=== PATIENT | female | born 1965 | race Caucasian/White ===

== ENCOUNTER → 2017-09-11 | Outpatient (CLI) | payer OTHER | END | disposition home or self-care (01) | LOC: US 08:07 | DX: D24.1 Benign neoplasm of right breast (principal) | CPT/HCPCS: 19081; 19083; 76942; 77065; 88305; C1713 ==

== ENCOUNTER 2018-04-09 06:59 | Emergency (ER) | payer SELFPAY ==
[~2018-04-09] VITALS: Ht 162.6 cm; Wt 84.8 kg
[2018-04-09] MEDS ORDERED: ONDANSETRON PF 4 MG/2 ML VIAL. IV ONE (08:15)
[2018-04-09 08:18] LABS: BASO # 0.1 x10^3/uL (0.0-0.2); BASO % 1 % (0-3); EOS # 0.4 x10^3/uL (0.0-0.7); EOS % 3 % (0-3); HEMATOCRIT 37.7 % (36.0-47.0); HEMOGLOBIN 12.7 g/dL (12.0-15.5); LYMPH # 1.7 x10^3/uL (1.0-4.8); LYMPH % 12 % (24-48); MEAN CORPUSCULAR HEMOGLOBIN 28 pg (25-35); MEAN CORPUSCULAR HGB CONC 34 g/dL (31-37); MEAN CORPUSCULAR VOLUME 83 fL (79-100); MONO # 0.6 x10^3/uL (0.0-1.1); MONO % 5 % (0-9); NEUT # 11.3 x10^3uL (1.8-7.7); NEUT % 80 % (31-73); PLATELET COUNT 412 x10^3/uL (140-400); RED BLOOD COUNT 4.54 x10^6/uL (3.50-5.40); RED CELL DISTRIBUTION WIDTH 14.2 % (11.5-14.5)
--- NOTE | 2018-04-09 08:18 | PHYS DOC ---
Adult General Chief Complaint Chief Complaint: NAUSEA/VOMITING/DIARRHA HPI HPI Patient is a 52 year old non-[place] speaking female who presents with acute onset dizziness described as spinning starting several hours prior to arrival awaking patient from sleep. Patient nausea and vomiting. Symptoms are worse with standing movement and position change and are not completely relieved with rest. Denies headache, change in vision, hearing,. Focal extremity weakness or loss of sensation. No tinnitus, neck pain. No chest pain palpitations or shortness of breath. No fever chills, sweats. No nasal congestion, rhinorrhea or other upper respiratory tract symptoms. History of hypertension. Patient is a nonsmoker drinks occasional alcohol. Translation is assisted by patient's daughter who is at bedside. [] Review of Systems Review of Systems Review symptoms as per history of present illness. All other review symptoms are negative. . Current Medications Current Medications Current Medications Medications (Trade) Dose Ordered Sig/Rama Start Time Stop Time Status Last Admin Dose Admin Dexamethasone Sodium Phosphate (Decadron) 10 mg 1X ONCE 04/09/18 10:30 04/09/18 10:31 Lorazepam (Ativan) 0.5 mg 1X ONCE 04/09/18 08:15 04/09/18 08:17 DC 04/09/18 08:25 0.5 MG Meclizine HCl (Antivert) 25 mg 1X ONCE 04/09/18 10:30 04/09/18 10:31 Ondansetron HCl (Zofran) 4 mg 1X ONCE 04/09/18 08:15 04/09/18 08:17 DC 04/09/18 08:25 4 MG Allergies Allergies Allergies Coded Allergies Type Severity Reaction Last Updated Verified No Known Drug Allergies 09/11/17 No Physical Exam Physical Exam Constitutional: Well developed, well nourished, no acute distress, non-toxic appearance. [] HENT: Normocephalic, atraumatic, bilateral external ears normal, oropharynx moist, nose normal. Maxillary pain, tenderness [] Eyes: PERRLA, EOMI, conjunctiva normal, no discharge. [] Neck: Normal range of motion, no tenderness, supple, no stridor. [] Cardiovascular:Heart rate regular rhythm, no murmur [] Lungs & Thorax: Bilateral breath sounds clear to auscultation [] Abdomen: Bowel sounds normal, soft, no tenderness. [] Skin: Warm, dry. [] Back: No tenderness. [] Extremities: No tenderness. [] Neurologic: Alert and oriented, cranial nerves II through XII grossly intact, normal motor function, normal sensory function, no focal deficits noted. [] Psychologic: Affect normal, judgement normal, mood normal. [] Current Patient Data Vital Signs Vital Signs Date Time Temp Pulse Resp B/P (MAP) Pulse Ox O2 Delivery O2 Flow Rate FiO2 04/09/18 09:18 84 17 121/67 (85) 92 04/09/18 08:11 97.9 Room Air 97.9 Lab Values Laboratory Tests Test 04/09/18 08:04 White Blood Count 14.0 x10^3/uL (4.0-11.0) H Red Blood Count 4.54 x10^6/uL (3.50-5.40) Hemoglobin 12.7 g/dL (12.0-15.5) Hematocrit 37.7 % (36.0-47.0) Mean Corpuscular Volume 83 fL (79-100) Mean Corpuscular Hemoglobin 28 pg (25-35) Mean Corpuscular Hemoglobin Concent 34 g/dL (31-37) Red Cell Distribution Width 14.2 % (11.5-14.5) Platelet Count 412 x10^3/uL (140-400) H Neutrophils (%) (Auto) 80 % (31-73) H Lymphocytes (%) (Auto) 12 % (24-48) L Monocytes (%) (Auto) 5 % (0-9) Eosinophils (%) (Auto) 3 % (0-3) Basophils (%) (Auto) 1 % (0-3) Neutrophils # (Auto) 11.3 x10^3uL (1.8-7.7) H Lymphocytes # (Auto) 1.7 x10^3/uL (1.0-4.8) Monocytes # (Auto) 0.6 x10^3/uL (0.0-1.1) Eosinophils # (Auto) 0.4 x10^3/uL (0.0-0.7) Basophils # (Auto) 0.1 x10^3/uL (0.0-0.2) Sodium Level 140 mmol/L (136-145) Potassium Level 4.0 mmol/L (3.5-5.1) Chloride Level 103 mmol/L (98-107) Carbon Dioxide Level 24 mmol/L (21-32) Anion Gap 13 (6-14) Blood Urea Nitrogen 28 mg/dL (7-20) H Creatinine 1.7 mg/dL (0.6-1.0) H Estimated GFR (Cockcroft-Gault) 31.4 BUN/Creatinine Ratio 16 (6-20) Glucose Level 162 mg/dL (70-99) H Calcium Level 9.8 mg/dL (8.5-10.1) Total Bilirubin 0.4 mg/dL (0.2-1.0) Aspartate Amino Transferase (AST) 22 U/L (15-37) Alanine Aminotransferase (ALT) 23 U/L (14-59) Alkaline Phosphatase 109 U/L (46-116) Total Protein 7.9 g/dL (6.4-8.2) Albumin 3.3 g/dL (3.4-5.0) L Albumin/Globulin Ratio 0.7 (1.0-1.7) L Laboratory Tests 04/09/18 08:04 Laboratory Tests 04/09/18 08:04 EKG EKG [EKG: reviewed] Radiology/Procedures Radiology/Procedures [CT head: sinusitis, no acute intracranial disease per radiology report] Course & Med Decision Making Course & Med Decision Making Pertinent Labs and Imaging studies reviewed. (See chart for details) [Acute onset dizziness vertigo, not relieved with rest. Ativan given with some improvement. However, patient still unsteady on her feet. Admission offered for further evaluation and treatment of underlying symptoms. Concern for possible CVA versus vestibular nerve dysfunction. Patient declines hospital admission preferring to follow up with local primary care physician. She agrees to return should her symptoms worsen.] Dragon Disclaimer Dragon Disclaimer This electronic medical record was generated, in whole or in part, using a voice recognition dictation system. Departure Departure Impression: Primary Impression: Vertigo Additional Impression: Sinusitis, acute Disposition: 01 HOME, SELF-CARE Condition: IMPROVED Referrals: UNKNOWN PCP NAME (PCP) Patient Instructions: Sinusitis, [id number], Vertigo, [id number] Additional Instructions: You were evaluated in the emergency department for dizziness. Lab work, EKG and imaging studies were performed and are nondiagnostic with exception of sinusitis. Please take meclizine as needed for dizziness and nausea and antibiotics as directed. Please be careful when standing and walking as you at risk of falling and personal injury. Please complete course of medications and follow-up with your PCP in 2-3 days for reevaluation. In the meantime, if you develop new or worsening symptoms, please return to the emergency department. Scripts Meclizine Hcl (MECLIZINE HCL) 25 Mg Tablet 1 TAB PO TID, #15 TAB Prov: ROSELIA POTTER DO 04/09/18 Cephalexin (KEFLEX) 500 Mg Capsule 1 CAP PO TID, #30 CAP Prov: ROSELIA POTTER DO 04/09/18 Problem Qualifiers ROSELIA POTTER DO Apr 09, 2018 08:18
[2018-04-09 08:32] LABS: CALCIUM 9.8 mg/dL (8.5-10.1); CREATININE 1.7 mg/dL (0.6-1.0); GFR 31.4
[2018-04-09 08:38] LABS: ALBUMIN 3.3 g/dL (3.4-5.0); ALBUMIN/GLOBULIN RATIO 0.7 (1.0-1.7); TOTAL BILIRUBIN 0.4 mg/dL (0.2-1.0); TOTAL PROTEIN 7.9 g/dL (6.4-8.2)
--- NOTE | 2018-04-09 09:00 | RAD ---
EXAM: CT Head without IV contrast CLINICAL HISTORY: DIZZINESS, N/V COMPARISON: None. TECHNIQUE: Routine CT of the head without contrast. Soft tissues and bone windows were reviewed. PQRS compliance statement - One or more of the following individualized dose reduction techniques were utilized for this study: 1. Automated exposure control 2. Adjustment of the mA and/or kV according to patient size 3. Use of iterative reconstruction technique FINDINGS: There is no evidence of hemorrhage, mass or extra-axial fluid collection. Salmon-white differentiation is maintained with no evidence of edema. There is no mass effect or shift of the intracranial structures. The ventricles, basilar cisterns and cortical sulci are normal in size and configuration for the patients stated age. The cerebellum and brainstem are unremarkable. The calvarium demonstrates no evidence of fracture or focal lesion. There is normal aeration of the mastoid air cells. Minimal thickening of the maxillary sinuses, possibly sinusitis. The visualized portions of the orbits are normal. IMPRESSION: No evidence for acute intracranial process. Minimal thickening of the maxillary sinuses, possibly sinusitis. Electronically signed by: George Carson MD (04/09/2018 8:56 AM) [id number]
[2018-04-09 09:18] VITALS: BP 121/67
[2018-04-09 10:13] LABS: BILIRUBIN,URINE NEGATIVE (NEG); CLARITY,URINE CLEAR; COLOR,URINE YELLOW; NITRITE,URINE NEGATIVE (NEG); PH,URINE 5.5; PROTEIN,URINE >=300 mg/dL (NEG-TRACE); UROBILINOGEN,URINE 0.2 mg/dL (0.2 mg/dL)
[2018-04-09 10:24] LABS: SQUAMOUS EPITHELIAL CELL,UR MOD /LPF
[2018-04-09 10:25] LABS: BACTERIA,URINE FEW /HPF (0-FEW); WBC,URINE OCC /HPF (0-4)
[2018-04-09] MEDS ORDERED: DEXAMETHASONE SOD PHOS 20 MG/5 ML VIAL. IV ONE (10:30)
[2018-04-09] MEDS ORDERED: MECLIZINE HCL 12.5 MG TABLET. PO ONE (10:30)
[2018-04-09] MEDS ORDERED: MECL25TA3 PO (10:31)
[2018-04-09] MEDS ORDERED: CEPH-264 PO (10:31)
== END 2018-04-09 10:35 | disposition home or self-care (01) ==
LOC: ER 06:59
DX: R42 Dizziness and giddiness (principal); J01.00 Acute maxillary sinusitis, unspecified; R11.2 Nausea with vomiting, unspecified
CPT/HCPCS: 36415; 70450; 80053; 81001; 85025; 96374; 96375; 99284; J1100; J2060; J2405; J8597